=== PATIENT | female | born 1970 | race Two or more races ===

== ENCOUNTER 2020-11-03 07:12 | Outpatient (CLI) | payer OTHER | END 2020-11-03 07:39 | disposition home or self-care (01) | LOC: LAB 07:12 | PROVIDERS: ATTEND Internal Medicine Hematology & Oncology | DX: D50.0 Iron deficiency anemia secondary to blood loss (chronic) (principal); D51.1 Vitamin B12 deficiency anemia due to selective vitamin B12 malabsorption with proteinuria; D51.3 Other dietary vitamin B12 deficiency anemia; M79.7 Fibromyalgia; I10 Essential (primary) hypertension; F33.9 Major depressive disorder, recurrent, unspecified; N80.0 Endometriosis of uterus; E03.8 Other specified hypothyroidism; N93.8 Other specified abnormal uterine and vaginal bleeding; Z80.3 Family history of malignant neoplasm of breast; Z12.11 Encounter for screening for malignant neoplasm of colon; Z78.9 Other specified health status; E03.9 Hypothyroidism, unspecified; E11.9 Type 2 diabetes mellitus without complications; E55.9 Vitamin D deficiency, unspecified ==

== ENCOUNTER → 2020-11-06 10:51 | Outpatient (CLI) | payer OTHER | END | disposition home or self-care (01) | LOC: LAB 10:51 | DX: E11.9 Type 2 diabetes mellitus without complications (principal); E55.9 Vitamin D deficiency, unspecified; E03.8 Other specified hypothyroidism; Z78.9 Other specified health status; I10 Essential (primary) hypertension; Z12.11 Encounter for screening for malignant neoplasm of colon ==